=== PATIENT | female | born 1940 | race Caucasian/White ===

== ENCOUNTER 2018-02-19 09:55 | Emergency (ER) | payer OTHER ==
[~2018-02-19] VITALS: Ht 154.9 cm; Wt 54.4 kg
[~2018-02-19 09:55] MED LIST: BACTRIM DS TAB1 EACH PO; VICODIN 5-3001 EACH PO
--- NOTE | 2018-02-19 10:48 | ED GENERAL ADULT ---
History of Present Illness General Chief Complaint: General Adult Stated Complaint: TOOK HUSBANDS MEDS BY ACCIDENT Source: patient Exam Limitations: no limitations Allergies Coded Allergies: No Known Allergies (02/06/16) Reconcile Medications Hydrocodone/Acetaminophen (Vicodin 5-300 MG Tablet) 1 EACH TABLET 1 TAB PO BID pain Sulfamethoxazole/Trimethoprim (Bactrim Ds Tablet) 1 EACH TABLET 1 TAB PO BID uti Triage Note: PT TO ED S/P ACCIDENTALLY TAKING HER HUSBANDS MEDICATIONS. PT KNOWS SHE TOOK NORVASC, BUT UNSURE WHAT OTHER MEDS WERE IN THE CUP. ONLY C/O FEELING DIZZY, DENIES PAIN. Triage Nurses Notes Reviewed? yes HPI: 77 YO F wiht a PMHx sig. for NIDDM, anxiety, depression, presented to the ED for medication overdose. Pt was in usual state of health when at 7.30 am this am, she took her 's medications by mistake(Norvasc,lasix,clonidine,aricept & allopurinol). She presented to the ED at 10.30 am & complained of dizziness. unsteadiness on standing up from the bed. Pt reports feeling unsteady lately, but its not this bad. She also reports a mild nausea. No CP/abd pain/SOB/vomiting/diarrhea/palpitations/bleeding/swelling or edema. She is eager tp go home as she had planned to go to [facility] this am. (Sriram PEACE,[facility]) General Source: patient, family, old records Exam Limitations: no limitations Vital Signs & Intake/Output Vital Signs & Intake/Output Vital Signs Date Time Temp Pulse Resp B/P B/P Pulse O2 O2 Flow FiO2 Mean Ox Delivery Rate 02/19 1200 97.5 64 16 105/56 96 Room Air 02/19 1122 Room Air 02/19 1035 64 16 104/50 96 Room Air 02/19 1022 112 18 128/74 97 Room Air 02/19 1009 97.3 67 20 93/60 97 Room Air Triage Nurses Notes Reviewed? yes (Sharath PEACE,Otto Pruitt) Past History Travel History Traveled to [place] past 21 day No Medical History Any Pertinent Medical History? see below for history Neurological: NONE EENT: macular degeneration Cardiovascular: NONE Respiratory: NONE Gastrointestinal: NONE Hepatic: NONE Renal: NONE Musculoskeletal: NONE Psychiatric: anxiety, depression Endocrine: diabetes Blood Disorders: NONE Cancer(s): NONE UTILITY TELLER/Reproductive: NONE Surgical History Surgical History: hysterectomy, gastric bypass Psychosocial History Services at Home None What is your primary language [place] Tobacco Use: Current Daily Use Daily Tobacco Use Amount/Type: => 5 Cigarettes daily ETOH Use: denies use Illicit Drug Use: denies illicit drug use Family History Hx Contributory? Yes (Yvonne Bhatia MD) Medical History Any Pertinent Medical History? see below for history Family History Hx Contributory? No (Sharath PEACE,Otto Pruitt) Review of Systems Review of Systems Constitutional: Reports: see HPI. EENTM: Reports: no symptoms. Respiratory: Reports: no symptoms. Cardiovascular: Reports: no symptoms. GI: Reports: no symptoms. Genitourinary: Reports: no symptoms. Musculoskeletal: Reports: no symptoms. Skin: Reports: no symptoms. Neurological/Psychological: Reports: no symptoms. Hematologic/Endocrine: Reports: no symptoms. Immunologic/Allergic: Reports: no symptoms. All Other Systems: Reviewed and Negative (Yvonne Bhatia MD) Physical Exam Physical Exam General Appearance: no apparent distress, alert, awake, comfortable, thin Head: atraumatic, normal appearance Eyes: Bilateral: normal appearance, PERRL, EOMI. Ears, Nose, Throat: normal pharynx, normal ENT inspection, hearing grossly normal Neck: normal inspection Respiratory: normal breath sounds, chest non-tender, lungs clear Cardiovascular: regular rate/rhythm Peripheral Pulses: 4+ radial (R), 4+ radial (L), 4+ dorsalis pedis (R), 4+ dorsalis pedis (L) Gastrointestinal: normal bowel sounds, soft, non-tender, no organomegaly Extremities: normal inspection, no edema Neurologic/Psych: no motor/sensory deficits, awake, alert, oriented x 3, normal gait, normal mood/affect, home health care physician II-XII nml as tested Core Measures ACS in differential dx? No CVA/TIA Diagnosis: No Sepsis Present: No Sepsis Focused Exam Completed? Yes (Yvonne Bhatia MD) Progress Differential Diagnoses I considered the following diagnoses in my evaluation of the patient: [ medication overdose,hypotension] Initial ED EKG: normal sinus rhythm (Yvonne Bhatia MD) Plan of Care: Orders Procedure Date/time Status EKG 02/19 1040 Active (Sharath PEACE,Otto Pruitt) Departure Departure Disposition: HOME OR SELF CARE Condition: Stable Clinical Impression Primary Impression: Medication overdose Secondary Impressions: Hypotension Referrals: Steven PEACE,Allan Forbes (PCP/Family) Additional Instructions: -Please make an appointment with your primary care physician and update them about your recent visit to the emergency department. -If you have any of these: please return to your nearest emergency department: Chest pain, shortness of breath, heart racing fast, fever, chills, dizziness, unsteadiness, falls, nausea, vomiting. -Please keep yourself hydrated -Please avoid exertional activity for a couple of days Departure Forms: Customer Survey General Discharge Information (Yvonne Bhatia MD) Resident Co-Sign Statement Statement: ED Attending supervision documentation- [X] I saw and evaluated the patient. I have also reviewed all the pertinent lab results and diagnostic results. I agree with the findings and the plan of care as documented in the Resident's documentation. [X] I have reviewed the ED Record and agree with the Resident's documentation. [] Additions or exceptions (if any) to the Resident's note and plan are summarized below: [] (Sharath PEACE,Otto Pruitt) Critical Care Note Critical Care Note Critical Care Time: non-applicable (Yvonne Bhatia MD) ED Attending Observation Initial Observation Note: I have seen and personally examined JAQUELIN TRAORE on 02/19/18 at 1801. I agree with the current emergency department documentation. The disposition (admission or discharge) is uncertain at this time, she needs a period of observation for the following reason(s): [medication overdose, hypotension] The ED Nurse caring for this patient has been personally informed as to what the patient is being observed for. (Yvonne Bhatia MD)
[2018-02-19 12:00] VITALS: BP 105/56
== END 2018-02-19 13:04 ==
LOC: ERH 09:55
DX: T50.991A Poisoning by other drugs, medicaments and biological substances, accidental (unintentional), initial encounter (principal); I95.9 Hypotension, unspecified
CPT/HCPCS: 93005; 93010; 96374; J2405; J7040